=== PATIENT | female | born 1995 | race Caucasian/White ===

== ENCOUNTER 2017-12-06 18:43 | Emergency (ER) | payer BC ==
[~2017-12-06] VITALS: Wt 54.4 kg
[~2017-12-06 18:43] MED LIST: NKHM PO
[2017-12-06] MEDS ORDERED: ROBAXIN500 M1 PO (20:39)
[2017-12-06] MEDS ORDERED: IBUPROFEN600 MG PO (20:39)
== END 2017-12-06 20:46 | disposition home or self-care (01) ==
LOC: ED 18:43
DX: S13.4XXA Sprain of ligaments of cervical spine, initial encounter (principal); S00.83XA Contusion of other part of head, initial encounter; Z79.899 Other long term (current) drug therapy; W17.89XA Other fall from one level to another, initial encounter; Y93.89 Activity, other specified; Y92.89 Other specified places as the place of occurrence of the external cause; Y99.9 Unspecified external cause status

== ENCOUNTER 2022-03-08 14:24 | Emergency (ER) | payer BC ==
[~2022-03-08] VITALS: Wt 61.2 kg
[~2022-03-08 14:24] MED LIST changes: +IBUPROFEN600 MG PO; +ROBAXIN500 M1 PO
== END 2022-03-08 16:43 | disposition home or self-care (01) ==
LOC: ED 14:24
DX: T40.411A Poisoning by fentanyl or fentanyl analogs, accidental (unintentional), initial encounter (principal); F17.200 Nicotine dependence, unspecified, uncomplicated; Y92.89 Other specified places as the place of occurrence of the external cause